=== PATIENT | male | born 1930 | race Caucasian/White ===

== ENCOUNTER 2017-04-06 16:45 | Emergency (ER) | payer MEDICARE, BC ==
--- NOTE | ~2017-04-06 | ER ---
PATIENT'S NAME: ANDRIY [facility]ERT [facility] AGE: 86 Y [address] ROOM: [place] [address] LOCATION: [facility] ADMIT DATE: 04/06/2017 ER/Outpatient Report DISCHARGE DATE: FAMILY PHYSICIAN: Saleem Bowie MD ATTENDING PHYSICIAN: Sia Kruse Time of Arrival: 1645 hours. Time of Evaluation: 1658 hours. IDENTIFICATION: An 86-year-old male. CHIEF COMPLAINT: Fall. HISTORY OF PRESENT ILLNESS: The patient has had some problems with his balance, but just got released from home health and physical therapy and has been doing really well, but today stepped up on a curb, cut the heel of his foot, and fell backwards, striking his posterior scalp. No loss of consciousness. It happened at 02:00 p.m. He does have a slight headache and slight neck pain. No numbness or tingling. No increased dizziness or unsteadiness. No chest pain. No syncope. No other problems or concerns. ALLERGIES: NO KNOWN DRUG ALLERGIES. CURRENT MEDICATIONS: 1. Omeprazole 20 mg b.i.d. 2. Buspirone 10 mg b.i.d. 3. Venlafaxine 75 mg daily and 150 mg in the morning. 4. Bupropion 100 mg daily. 5. Mirtazapine 30 mg 1-1/2 daily. 6. Atorvastatin 20 mg daily. 7. Carvedilol 6.25 mg one-half b.i.d. 8. O2 at 4 L per nasal cannula. PAST MEDICAL PROBLEMS: COPD, coronary artery disease, previous VT and stents, pacemaker, and hyperlipidemia. SOCIAL HISTORY: The patient lives in [place]. He does live alone. Tobacco use, denies. Alcohol use, denies. Drug use, denies. PATIENT'S NAME: ANDRIY HERBERT [facility] AGE: 86 Y [address] ROOM: [place] [address] LOCATION: [facility] ADMIT DATE: 04/06/2017 ER/Outpatient Report DISCHARGE DATE: FAMILY PHYSICIAN: Saleem Bowie MD ATTENDING PHYSICIAN: Sia Kruse FAMILY HISTORY: No pertinent family history. REVIEW OF SYSTEMS: All systems were reviewed and negative other than what is noted in the HPI. PHYSICAL EXAMINATION: VITAL SIGNS: Blood pressure 171/84, pulse 99, respirations 20, temperature 98.6, and saturations 92% on 4 L. Cesar Coma 15. GENERAL: An 86-year-old male, in no acute distress. HEENT: Head: Normocephalic and atraumatic. Ears: TMs translucent in both ears. Eyes: Pupils are equal and reactive to light and accommodation. Extraocular movements intact. Nose: Mucosa pink. No lesions. Mouth: No lesions. Pharynx benign. NECK: Supple. He is tender to palpation at the base of his neck. No palpable deformities. LUNGS: Clear to auscultation. HEART: Regular rate and rhythm. ABDOMEN: Soft, nondistended, and nontender. SKIN: [place], warm, and dry. The patient has abrasions over his right elbow. No bony tenderness. He has full range of motion. EXTREMITIES: No edema. No other bony tenderness. NEUROLOGIC: The patient is alert and oriented x4. Cranial nerves 2 through 12 grossly intact. Motor strength 5/5 throughout. Sensation is intact to light touch. LABORATORY DATA: Hemoglobin 9.5; hemoglobin was 10.2 in May 2016; hematocrit 30.9, platelets 160, and white count 8.0 with a normal differential. Sodium 140, potassium 4.6, chloride 100, CO2 of 38, BUN 18, creatinine 0.8, and blood sugar 115. Liver enzymes normal. INR 0.92. DIAGNOSTIC DATA: Head CT, no acute findings. Cervical spine CT, no acute fracture. He has degenerative changes. Right elbow x-ray, no acute fracture. IMPRESSION AND PLAN: 1. Head injury. Discharge home with head injury precautions. Slow cautious movements. 2. Right elbow abrasion and contusion. Wound care and tetanus was boosted. 3. Anemia, seems to be chronic. Follow up with Dr. Bowie in 2 to 3 days. Follow up sooner if any problems or concerns. The patient understands and agrees, and all questions have been answered. PATIENT'S NAME: ANDRIY HER[facility]ERT [facility] AGE: 86 Y [address] ROOM: [place] [address] LOCATION: [facility] ADMIT DATE: 04/06/2017 ER/Outpatient Report DISCHARGE DATE: FAMILY PHYSICIAN: Saleem Bowie MD ATTENDING PHYSICIAN: Sia Kruse MD Shane PADGETT /[id number] d: 04/06/17 1908 t: 04/15/17 0757, OUTPATIENT REPORT
[2017-04-06 17:31] LABS: BASOPHIL % 0.5 %; EOSINOPHIL # 0.6 K/uL (0.0-0.5); HEMATOCRIT 30.9 % (33.0-50.0); HEMOGLOBIN 9.5 g/dL (11.0-16.0); IMMATURE GRANULOCYTE # 0.1 K/uL (0.0-0.3); IMMATURE GRANULOCYTE % 0.8 %; LYMPHOCYTE # 0.8 K/uL (0.8-4.0); LYMPHOCYTE % 10.2 %; MCH 29.9 pg (27.0-34.0); MCHC 30.7 gm/dL (32.0-36.5); MCV 97.2 fl (83.0-98.0); MONOCYTE # 0.7 K/uL (0.0-1.0); MONOCYTE % 8.5 %; NEUTROPHIL # (ANC) 5.8 K/uL (1.4-9.0); NRBC % 0 /100WBC (0-0.00); PLATELET COUNT 160 K/uL (150-450); RBC 3.18 M/uL (3.50-5.50); RDW-CV 12.7 % (11.9-14.6)
[2017-04-06 17:43] LABS: INR - (THERAPEUTIC) 0.92 (0.92-1.07); PROTIME 9.7 SECONDS (9.8-11.4); PTT 28 SECONDS (25-32)
[2017-04-06 17:51] LABS: ALBUMIN 3.3 gm/dL (3.5-5.0); ANION GAP 6.6 (10.0-19.0); CALCIUM 8.6 mg/dL (8.5-10.5); CREATININE 0.8 mg/dL (0.6-1.3); POTASSIUM 4.6 mMol/L (3.7-5.1); TOTAL BILIRUBIN 0.4 mg/dL (0.0-1.5); TOTAL PROTEIN 6.8 g/dL (6.0-8.4)
== END 2017-04-06 18:20 | disposition disaster alternative care site (69) ==
LOC: GACC 16:45
PROVIDERS: Family Medicine
DX: S09.90XA Unspecified injury of head, initial encounter (principal); S50.01XA Contusion of right elbow, initial encounter; D64.9 Anemia, unspecified; J44.9 Chronic obstructive pulmonary disease, unspecified; I25.10 Atherosclerotic heart disease of native coronary artery without angina pectoris; E78.5 Hyperlipidemia, unspecified; Z86.79 Personal history of other diseases of the circulatory system; Z95.828 Presence of other vascular implants and grafts; Z95.0 Presence of cardiac pacemaker; Z79.899 Other long term (current) drug therapy; W18.00XA Striking against unspecified object with subsequent fall, initial encounter